=== PATIENT | female | born 1980 | race Caucasian/White ===

== ENCOUNTER 2020-03-09 14:25 | Outpatient (REF) | payer OTHER, SELFPAY ==
[2020-03-09 17:24] LABS: Syphilis Screen Nonreactive (Nonreactive)
[2020-03-10 03:12] LABS: CT PCR NOT DETECTED (Not Detect.); NG PCR NOT DETECTED (Not Detect.)
[2020-03-10 08:54] LABS: BV Int Neg Control Negative (Negative); BV Int Pos Control Positive (Positive)
[2020-03-14 04:29] LABS: HBsAGNum1 0.21 S/CO (0.00-0.99); HIV AB/AG Nonreactive (Nonreactive); HIV Num 1 0.21 S/CO (0.00-0.99); Hepatitis B Surface Antigen Negative (Negative); ~HepC Num1 0.14 S/CO (0.00-0.79); ~Hepatitis C Antibody Nonreactive (Nonreactive)
[2020-03-16 22:18] LABS: HPV mRNA E6/E7 rflx Not Detected (Not Detected)
== END 2020-03-09 14:26 | disposition home or self-care (01) ==
LOC: HO.LAB 14:25
PROVIDERS: Visit Provider Advanced Practice Midwife
DX: Z01.419 Encounter for gynecological examination (general) (routine) without abnormal findings (principal); Z11.51 Encounter for screening for human papillomavirus (HPV); Z11.3 Encounter for screening for infections with a predominantly sexual mode of transmission; Z11.4 Encounter for screening for human immunodeficiency virus [HIV]; Z01.84 Encounter for antibody response examination; Z20.2 Contact with and (suspected) exposure to infections with a predominantly sexual mode of transmission
CPT/HCPCS: 86780; 86803; 87340; 87389; 87480; 87491; 87510; 87591; 87624; 87625; 87660; 88142

== ENCOUNTER 2021-08-01 14:21 | Outpatient (REF) | payer OTHER, SELFPAY ==
[2021-08-02 12:10] LABS: BV Int Neg Control Negative (Negative); BV Int Pos Control Positive (Positive)
[2021-08-02 12:40] LABS: CT PCR NOT DETECTED (Not Detect.); NG PCR NOT DETECTED (Not Detect.)
== END 2021-08-01 14:22 | disposition home or self-care (01) ==
LOC: HO.LAB 14:21
PROVIDERS: Visit Provider Advanced Practice Midwife
DX: Z01.419 Encounter for gynecological examination (general) (routine) without abnormal findings (principal); Z20.2 Contact with and (suspected) exposure to infections with a predominantly sexual mode of transmission; E66.3 Overweight
CPT/HCPCS: 87480; 87491; 87510; 87591; 87660

== ENCOUNTER 2021-08-15 14:33 | Outpatient (REF) | payer OTHER, SELFPAY ==
--- NOTE | ~2021-08-15 | MM_ITS ---
EXAMINATION: MM SCREENING DIGITAL BREAST TOMOSYNTHESIS, BILATERAL CLINICAL INFORMATION: Screening. Asymptomatic. Age 40. No prior breast imaging. No known family history breast cancer. The lifetime risk of breast cancer based on the Tyrer-Cuzick Model is 8%. COMPARISON: None (current study represents initial baseline exam). TECHNIQUE: Digital breast tomosynthesis is performed in both the craniocaudal and mediolateral oblique views along with computer-aided detection (CAD). Synthesized 2D images are generated from the tomosynthesis. FINDINGS: There are scattered areas of fibroglandular density (ACR BI-RADS breast composition Category b). There are no significant masses, abnormal calcifications, or other abnormalities. Breast tissue composition borders on heterogeneously dense. There is fine fibronodular parenchymal pattern. The axilla and skin contours are unremarkable. MM/MM tomosynthesis screening BI IMPRESSION: No mammographic evidence of malignancy. ASSESSMENT: BI-RADS 1: Negative RECOMMENDATION: Routine annual mammography screening. This patient's information was entered into a reminder system with a target due date for their next mammogram.
== END 2021-08-15 14:34 | disposition home or self-care (01) ==
LOC: HO.MAMMO 14:33
PROVIDERS: Visit Provider Advanced Practice Midwife
DX: Z12.31 Encounter for screening mammogram for malignant neoplasm of breast (principal)
CPT/HCPCS: 77063; 77067

== ENCOUNTER 2022-05-16 08:49 | Outpatient (REF) | payer OTHER, SELFPAY ==
--- NOTE | 2022-05-16 08:55 | EMG_ITS ---
Please see scanned EMG / Nerve Conduction Report. MTDD
== END 2022-05-16 08:50 | disposition home or self-care (01) ==
LOC: HO.NEURO 08:49
PROVIDERS: PCP Internal Medicine; Visit Provider Internal Medicine
DX: R20.2 Paresthesia of skin (principal); R20.0 Anesthesia of skin
CPT/HCPCS: 95885; 95913

== ENCOUNTER 2022-08-07 13:56 | Outpatient (REF) | payer OTHER, SELFPAY | END 2022-08-07 13:57 | disposition home or self-care (01) | LOC: HO.LNP 13:56 | PROVIDERS: PCP Internal Medicine; Visit Provider Advanced Practice Midwife | DX: Z13.89 Encounter for screening for other disorder (principal) ==

== ENCOUNTER 2022-08-07 14:53 | Outpatient (REF) | payer OTHER, SELFPAY ==
[2022-08-07 18:04] LABS: CT PCR NOT DETECTED (Not Detect.); NG PCR NOT DETECTED (Not Detect.)
[2022-08-08 03:44] LABS: Syphilis Screen Nonreactive (Nonreactive)
[2022-08-08 04:10] LABS: HBsAGNum1 0.37 S/CO (0.00-0.99); HIV AB/AG Nonreactive (Nonreactive); HIV Num 1 0.07 S/CO (0.00-0.99); Hepatitis B Surface Antigen Negative (Negative); ~HepC Num1 0.15 S/CO (0.00-0.79); ~Hepatitis C Antibody Nonreactive (Nonreactive)
[2022-08-08 10:19] LABS: BV Int Neg Control Negative (Negative); BV Int Pos Control Positive (Positive)
== END 2022-08-07 14:54 | disposition home or self-care (01) ==
LOC: HO.LAB 14:53
PROVIDERS: PCP Internal Medicine; Visit Provider Advanced Practice Midwife
DX: Z11.3 Encounter for screening for infections with a predominantly sexual mode of transmission (principal); Z11.4 Encounter for screening for human immunodeficiency virus [HIV]; Z20.2 Contact with and (suspected) exposure to infections with a predominantly sexual mode of transmission
CPT/HCPCS: 0353U; 86780; 86803; 87340; 87389; 87480; 87510; 87660

== ENCOUNTER 2022-08-10 05:57 | Outpatient (REF) | payer OTHER, SELFPAY ==
[2022-08-10 08:17] LABS: Alanine Aminotransferase 23 U/L (0-31); Alkaline Phosphatase 114 U/L (39-117); Anion Gap 8 (12-20); Aspartate Amino Transferase 20 U/L (5-31); Bilirubin Total 0.3 mg/dL (0.0-1.0); Blood Urea Nitrogen 8 mg/dL (9-16); Calcium 8.9 mg/dL (8.4-10.2); Carbon Dioxide 26 mmol/L (22-29); Chloride 107 mmol/L (96-108); Cholesterol 151 mg/dL; Estimated Glomerular Filt Rate > 60; Glucose Fasting 107 mg/dL (60-99); HDL Cholesterol 34 mg/dL; Potassium 4.3 mmol/L (3.3-5.1); Sodium 137 mmol/L (135-145); Total Protein 7.3 g/dL (6.5-8.0)
== END 2022-08-10 05:58 | disposition home or self-care (01) ==
LOC: HO.LAB 05:57
PROVIDERS: PCP Internal Medicine; Visit Provider Internal Medicine
DX: Z00.00 Encounter for general adult medical examination without abnormal findings (principal)
CPT/HCPCS: 36415; 80053; 80061

== ENCOUNTER 2023-03-19 10:45 | Outpatient (REF) | payer OTHER, SELFPAY ==
[2023-03-19 12:01] LABS: Influenza A PCR NEGATIVE (Negative); Influenza B PCR NEGATIVE (Negative); Resp Syncy Virus RNA Qual PCR NEGATIVE (Negative); SARS COV2 PCR INHOUSE POSITIVE (Negative)
== END 2023-03-19 10:46 | disposition home or self-care (01) ==
LOC: HO.LAB 10:45
PROVIDERS: PCP Internal Medicine; Visit Provider Internal Medicine
DX: R09.89 Other specified symptoms and signs involving the circulatory and respiratory systems (principal); Z11.52 Encounter for screening for COVID-19
CPT/HCPCS: 0241U

== ENCOUNTER 2023-05-06 15:47 | Outpatient (REF) | payer OTHER, SELFPAY ==
--- NOTE | ~2023-05-06 | MM_ITS ---
EXAMINATION: MM SCREENING DIGITAL BREAST TOMOSYNTHESIS, BILATERAL CLINICAL INFORMATION: Screening. Asymptomatic. COMPARISON: Mammography: This study is compared with the only prior mammogram from 2021. TECHNIQUE: Digital breast tomosynthesis is performed in both the craniocaudal and mediolateral oblique views along with computer-aided detection (CAD). Synthesized 2D images are generated from the tomosynthesis. FINDINGS: There are scattered areas of fibroglandular density (ACR BI-RADS breast composition Category b). There are no significant masses, abnormal calcifications, or other abnormalities. MM/MM tomosynthesis screening BI IMPRESSION: No mammographic evidence of malignancy. ASSESSMENT: BI-RADS BI-RADS 1 - Negative RECOMMENDATION: Routine annual mammography screening. 1 year F/U This examination should not preclude the clinical evaluation of a suspicious palpable abnormality. This patient's information was entered into a reminder system with a target due date for their next mammogram.
== END 2023-05-06 15:48 | disposition home or self-care (01) ==
LOC: HO.MAMMO 15:47
PROVIDERS: PCP Internal Medicine; Visit Provider Internal Medicine
DX: Z12.31 Encounter for screening mammogram for malignant neoplasm of breast (principal)
CPT/HCPCS: 77063; 77067

== ENCOUNTER → 2023-05-06 16:15 | Outpatient (BNV) | payer OTHER, SELFPAY | PROVIDERS: PCP Internal Medicine; Visit Provider Radiology Diagnostic Radiology | DX: Z12.31 Encounter for screening mammogram for malignant neoplasm of breast (principal) | CPT/HCPCS: 77063; 77067 ==

== ENCOUNTER 2023-08-12 14:53 | Outpatient (REF) | payer OTHER, SELFPAY ==
[2023-08-13 13:36] LABS: BV Int Neg Control Negative (Negative); BV Int Pos Control Positive (Positive)
[2023-08-13 15:00] LABS: CT PCR NOT DETECTED (Not Detect.); NG PCR NOT DETECTED (Not Detect.)
== END 2023-08-12 14:54 | disposition home or self-care (01) ==
LOC: HO.LNP 14:53
PROVIDERS: PCP Internal Medicine; Visit Provider Advanced Practice Midwife
DX: H57.9 Unspecified disorder of eye and adnexa (principal); E66.3 Overweight; Z20.2 Contact with and (suspected) exposure to infections with a predominantly sexual mode of transmission; Z98.51 Tubal ligation status
CPT/HCPCS: 0353U; 87480; 87510; 87660; 99396

== ENCOUNTER 2023-08-12 14:53 | Outpatient (AMB) | payer OTHER, SELFPAY ==
--- NOTE | 2023-08-12 14:54 | MHC.OFFVIS ---
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 She says she has not been able to see her primary care provider in the last year. She did have an appointment but she was sick with COVID so she had to cancel that appointment and when he got rescheduled it was very far away she said she has not been able to see her to discuss the concerns about her heavy breasts which she would like surgery for and also for her I she has not had a referral to Ophthalmology she says and she says she is waiting to see her primary. She says she was told she is prediabetic she is trying to lose the weight in by eating small meals only 2 meals a day and she is avoiding soda and other sweet things. She was not worried about STIs but did accept testing during the neonatal critical care nurse exam she is due for Pap smear next year. She does not remember the exact day of herperiod But it was around the middle of the month. She had her tubes tied so she has not worried about control. she is sexually active with her . She said she had her mammogram about 4 or 5 months ago and it was fine. She said that the thing in her eye is affecting her vision in the left eye if she covers her good eye her vision is obscured [facility] Medical History (Updated 08/12/23 @ 15:53 by Ginette Schultz CNM) Overweight (BMI 25.0-29.9) Bilateral wrist pain Paresthesia of hand, bilateral Pinguecula of left eye Low back pain Left lumbar radiculopathy Surgical History (Updated 08/12/23 @ 15:48 by Ginette Schultz CNM) History of tubal ligation Family History Mother Pneumonia Chronic liver failure Father Colon cancer Sister Lupus Social History Housing: House Alcohol intake: never Patient Tobacco Use Status: Never used Tobacco e-Cigarette/Vaping Use: Never Used service: No Current occupational status: employed Current occupational exposures/hazards: No Gender identity: Female Cognitive needs: No Hearing needs: No Vision needs: No Female Reproductive History Menstrual Age of Menarche: 15 Duration of menses: 3-5 days control method: other (tubal ligation) Total pregnancies: 2 Full term: 2 Number of Living Children: 2 Date of last pap smear: 03/15/20 (negative) History of abnormal pap smear: No Date of Mammogram: 05/06/23 Physical Exam Vital Signs: Last Vital Signs BP 114/68 08/12/23 14:55 BMI result Body Mass Index 28.3 Const General: healthy appearing, comfortable, no acute distress, well developed and alert Nutritional Appearance: average body habitus Orientation/consciousness: patient oriented x3 Limitations: no limitations HEENT Head: Yes normocephalic Eyes Other: Patient has pinkish gel like thickening of the sclera on left eye that is over growing the left Iris. Neck Neck: Yes normal visual inspection Chest Chest palpation & inspection: normal inspection of the chest Breast/axilla inspection: normal inspection of the breasts and normal inspection of the axillae Breast/axilla palpation: normal palpation of the breasts and normal palpation of the axillae Resp Effort & Inspection: normal respiratory effort GI Inspection: Yes normal to inspection, No Abdominal wall edema and No distended Palpation (GI): Soft to palpation and nontender General: Yes bladder normal to palpation External Female Exam: normal external appearance and normal appearance of the urethra Speculum Exam - Vagina: normal appearance of the vagina, normal palpation and normal vaginal discharge Speculum Exam - Cervix: normal appearance of the cervix, normal palpation and nontender Bimanual exam- vagina & uterus: normal bimanual exam, normal palpation, uterine size normal, bladder normal to palpation, consistency normal, normal palpation, uterine mobility normal, uterine shape normal, No Cervical tenderness present, non-tender and no cervical motion tenderness Bimanual Exam- Adnexa, other: normal adnexae, no masses, normal and No adnexal tenderness Neuro General: patient oriented x3 Results Reviewed Results Reviewed: Name: Maryam Huston Specimen #: [id number] Age/Sex: 39/F Attending: Ginette Schultz CNM : 1980 Submitted by: Ginette Schultz CNM Collected: 03/09/20 MR #: [id number] Received: 03/15/20 Status: DEP REF Location: .LAB Interpretation Satisfactory for evaluation. Negative for intraepithelial lesion or malignancy. HPV mRNA E6/E7: NOT DETECTED This assay detects E6/E7 viral messenger RNA (mRNA) from 14 high-risk HPV types (16, 18, 31, 33, 35, 39, 45, 51, 52, 56, 58, 59, 66, 68) HPV testing performed by [facility], [place], [place]. See reference laboratory portion of the EMR for entire report. Clinical Information LMP: 02/29/20 Previous PAP test: Unknown date/findings Material Received ThinPrep cervical Electronically Signed By: ROSSY Hendricks (ASCP) 04/06/20 0923 The Pap Test is a screening procedure with the inherent possibility of both false negative and false positive results. Results should be interpreted in the context of historic and current clinical findings. Reliability of the Pap Test is enhanced by performing the test on a regular repetitive basis. Patient: Lemuel Page 1 of 1 Assessment & Plan Assessment & Plan (1) Eye lesion: Code(s): H57.9 - Unspecified disorder of eye and adnexa Category: Medical (2) Overweight (BMI 25.0-29.9): Code(s): E66.3 - Overweight Category: Medical (3) Potential exposure to STD: Comment: Patient is not concerned at all she accepted cultures during the visit Code(s): Z20.2 - Contact with and (suspected) exposure to infections with a predominantly sexual mode of transmission Category: Medical (4) History of tubal ligation: Code(s): Z98.51 - Tubal ligation status Category: Surgical Plan -----Discussed in this visit the following: healthy balanced diet, regular and consistent exercise, getting recommended health screens, doing the best she can for her particular health concerns, kegel exercises, pap smear screening and followup recommendations, mammography screening and SBE, normal changes in cycles in her life stage--- . Discussed that she will be due for her Pap smear next year in 2024. I offered testing for STIs but the only thing she accepted were the checks for gonorrhea chlamydia trichomoniasis Gardnerella and Gretta that were done with the pelvic exam. Her discharge appeared clear and healthy and normal her cervix appeared pink and healthy and normal. Her breasts are pendulous but no masses palpable. I urged her to follow-up on her I and re request referral to Ophthalmology from her primary care provider I did question does she need to wait for her provider to send her a referral but she said she was told that she needed a referral from her. She has doing a good job trying to eat healthy take care of her pre diabetes and overall health RTC 1 year. with Pap I was not able to describe to her during the exam how to do a Kegel and instead she was bearing down so I gave her written handout on Kegel exercises in [place]i. Orders: Orders CT NG by PCR Today Z20.2 - Contact with and (suspected) exposure to infections with a predominantly sexual mode of transmission Bacterial Vaginosis Panel Today Z20.2 - Contact with and (suspected) exposure to infections with a predominantly sexual mode of transmission Coding Level of Care Code Est Pt Prev Care 40-64y(52887) Diagnoses Eye lesion H57.9 Overweight (BMI 25.0-29.9) E66.3 Potential exposure to STD Z20.2 History of tubal ligation Z98.51
[2023-08-12 14:55] VITALS: BP 114/68; BMI 28.3
== END 2023-08-12 15:47 | disposition home or self-care (01) ==
LOC: HO.HWSM 14:53
PROVIDERS: PCP Internal Medicine; Visit Provider Advanced Practice Midwife
DX: Z01.419 Encounter for gynecological examination (general) (routine) without abnormal findings (principal); H57.9 Unspecified disorder of eye and adnexa; E66.3 Overweight; Z20.2 Contact with and (suspected) exposure to infections with a predominantly sexual mode of transmission; Z98.51 Tubal ligation status
CPT/HCPCS: 99396

== ENCOUNTER 2023-12-05 13:55 | Outpatient (AMB) | payer OTHER, SELFPAY ==
[2023-12-05 13:59] VITALS: BP 120/72; BMI 28.5
--- NOTE | 2023-12-05 13:59 | MHC.PC.OV ---
Vital Signs 12/05/23 13:59 Height 4 ft 11 in Weight 141 lb BMI 28.5 BP 120/72 Blood Pressure Location Lt brachial Position Sitting Intake Visit Reasons: follow up Intake Note: Patient here for vision problems Bindery Supervisor Required: No Accompanied by: Self / Same As Patient Allergies No Known Allergies Allergy (Verified 12/05/23 14:09) Medication List - Last Reconciled 12/05/23 by Georgiana Sena MD No Known Home Meds Tobacco use date assessed: 12/05/23 Dental Screening Dental Screen Date: 12/05/23 Did you have a dental visit in the last 12 months?: Yes Did you have a dental problem in the last 6 months where you did not have access to dental care?: No Was dental information given to patient?: Patient has dentist HPI HPI Comments History of Present Illness Details This is a 43-year-old female that complains of having decrease in vision in the left eye due to pterygium that bothers her. Will be referred to Ophthalmology. Also has thoracic spine pain secondary to macromastia. Her Bra gets indented in the shoulder due to macromastia. Will be referred to Plastic surgery for evaluation and management of macromastia. She has also try [id number] pain medications and to lose some weight but has not improved the pain. [facility] Medical History (Updated 12/05/23 @ 14:22 by Georgiana Sena MD) Overweight (BMI 25.0-29.9) Bilateral wrist pain Paresthesia of hand, bilateral Pinguecula of left eye Low back pain Left lumbar radiculopathy Surgical History History of tubal ligation Family History Mother Pneumonia Chronic liver failure Father Colon cancer Sister Lupus Social History Housing: House Alcohol intake: never Patient Tobacco Use Status: Never used Tobacco e-Cigarette/Vaping Use: Never Used service: No Current occupational status: employed Current occupational exposures/hazards: No Gender identity: Female Cognitive needs: No Hearing needs: No Vision needs: No Female Reproductive History Menstrual Age of Menarche: 15 Questionnaire PHQ-9 Over the last 2 weeks, how often have you been bothered by any of the following problems? 1. Little interest or pleasure in doing things: not at all 2. Feeling down, depressed, or hopeless: not at all 3. Trouble falling or staying asleep, or sleeping too much: not at all 4. Feeling tired or having little energy: not at all 5. Poor appetite or overeating: not at all 6. Feeling bad about yourself - or that you are a failure or have let yourself or your family down: not at all 7. Trouble concentrating on things, such as reading the newspaper or watching television: not at all 8. Moving or speaking so slowly that other people could have noticed. Or the opposite - being so fidgety or restless that you have been moving around a lot more than usual: not at all 9. Thoughts that you would be better off or of hurting yourself in some way: not at all Total score: 0 Depression Screening Interpretation: Negative Depression Screening Done: Yes 12355 - PHQ-9 Billing: Yes Source: Developed by Drs. Vidal Morales, Lila Khanna, Huey Oliveira and colleagues, with an educational vic from [employer]. Thrive Questionnaire Date Thrive assessed: 12/05/23 I am a: Patient What is your living situation today?: I have a steady place to live Within the past 12 months, did the food you bought not last and you didn't have the money to get more?: Never true Within the past 12 months, did you worry whether your food would run out before you got money to buy more?: Never true Do you have trouble paying for medicines?: No Do you have trouble getting transportation to medical appointments?: No Do you have trouble paying your heating and electricity bill?: No Do you have trouble taking care of your child, family member or friend?: No Do you have trouble with day-to-day activities such as bathing, preparing meals, shopping, managing finances, etc.?: No Are you currently unemployed and looking for a job?: No Are you interested in more education?: No Please select the resources that you would like help with: None Currently or been in a relationship where the following occur: No concerns reported THRIVE Score: 0 AUDIT C Alcohol Use Questionnaire (AUDIT-C) 1. How often do you have a drink containing alcohol?: Never Total Score: 0 Score Reviewed/Action Taken: No ZURDO-7 AMB Questionnaire ZURDO-7 Date ZURDO - 7 assessed: 12/05/23 Feeling nervous, anxious, or on edge: 0 = Not at all Not being able to stop or control worryin = Not at all Worrying too much about different things: 0 = Not at all Trouble relaxin = Not at all Being so restless that it is hard to sit still: 0 = Not at all Becoming easily annoyed or irritable: 0 = Not at all Feeling afraid as if something awful might happen: 0 = Not at all Total ZURDO-7 score (0-4 normal; 5-9 mild; 10-14 moderate; 15-21 severe): 0 Source: Developed by Drs. Vidal Morales, Lila Khanna, Huey Oliveira and colleagues, with an educational vic from [employer]. ZURDO-7 Assessment Billing ZURDO-7 Assessment Tool: ZURDO-7 Assessment 50167 Review of Systems Const All systems reviewed & are unremarkable except as noted in HPI and below Eyes Reports other visual disturbances Card Denies chest pain at rest, Denies chest pain with activity, Denies edema, Denies irregular heart rhythm, Denies claudication, Denies dyspnea, Denies dyspnea on exertion, Denies orthopnea, Denies paroxysmal nocturnal dyspnea and Denies slow heart rate Resp Denies cough, Denies dyspnea and Denies dyspnea on exertion Musc Reports back pain Physical exam (Primary Care) Vital Signs: Last Vital Signs BP 120/72 12/05/23 13:59 BMI result Body Mass Index 28.5 Tobacco/Smoking Status: Tobacco use Status Tobacco use date assessed 12/05/23 12/05/23 14:06 Patient Tobacco Use Status Never used Tobacco 12/05/23 14:03 Tobacco use type 05/02/22 17:13 e-Cigarette/Vaping Use Never Used 12/05/23 14:03 PHQ-9: PHQ-9 Score PHQ-9: Total score 0 12/05/23 14:03 Depression Screening Interpretation: Negative Thrive Assessment: Date of Thrive Assessment Date Thrive assessed 12/05/23 12/05/23 14:03 Currently or been in a relationship where the following occur: No concerns reported Eyes Conjunctivae: conjunctival abnormal left pterygium Resp Effort & Inspection: normal respiratory effort Auscultation: clear to auscultation bilaterally Cardio Jugular venous distension: no JVD Rate: regular rate Rhythm: regular rhythm Heart sounds: S1 normal heart sound present and S2 normal heart sound present Extrem General: Yes full ROM Assessment and Plan Assessment & Plan (1) Pterygium: Code(s): H11.009 - Unspecified pterygium of unspecified eye Qualifiers: Laterality: left Qualified Code(s): H11.002 - Unspecified pterygium of left eye Plan: Referred to Ophthalmology. (2) Macromastia: Code(s): N62 - Hypertrophy of breast Plan: Referred to Plastic surgery. Orders: Referrals Ophthalmology Referral H11.009 - Unspecified pterygium of unspecified eye Plastic Surgery Referral N62 - Hypertrophy of breast Coding Level of Care Code Est Pt Level 3 (19789) Complex EM visit Add On G2211 Diagnoses Pterygium of left eye H11.002 Laterality: left Macromastia N62 Additional Codes ZURDO-7 Assessment Billing - ZURDO-7 Assessment Tool: ZURDO-7 Assessment 85197 ([id number]) Time Spent (min) 19
== END 2023-12-05 14:22 | disposition home or self-care (01) ==
PROVIDERS: PCP Internal Medicine; Visit Provider Internal Medicine
DX: H11.002 Unspecified pterygium of left eye (principal); N62 Hypertrophy of breast
CPT/HCPCS: 99213; G2211

== ENCOUNTER 2024-05-12 15:36 | Outpatient (REF) | payer OTHER, SELFPAY ==
--- OUTSIDE RECORDS SUMMARY | 2024-05-12 16:28 | XMS_ITS | Encounter Summary ---
Author Organization [employer] Address [address] [place] [address] Care Team Providers Care Price Analyst Name Role Phone Unavailable Primary Care Provider Unavailabl e Encounter Details Date Type Department Care Team (Late st Contact Info) Description 04/23/2024 Telephone [facility] ADULT DENTAL [address] [place] [address] Apurva Murray Social History Tobacco Use Types Packs/Day Years Used Date Smoking Tobacco: Never Smokeless Tobacco: Never Comments Unknown Sex and Gender Information Value Date Recorded Sex Assigned at Female 11/08/2022 1:16 PM EDT Legal Sex Female 2:12 PM EDT Gender Identity Female 11/08/2022 1:16 PM EDT Sexual Orientation Straight 11/08/2022 1: 16 PM EDT documented as of this encounter Miscellaneous Notes * Telephone Encounter - Erica Soto - 04/23/2024 7:59 AM EST LVM, informing pt her appointment was cancel provider out of the office today. to reach us back to reschedule, documented in this encounter Plan of Treatment Not on file documented as of this encounter Visit Diagnoses Not on filedocumented in this encounter
--- OUTSIDE RECORDS SUMMARY | 2024-05-12 16:28 | XMS_ITS | Clinical Summary ---
Author Organization [employer] [facility] Address [address] [place] [address] Care Team Providers Care Tack Maker Name Role Phone Unavailable Primary Care Provider Unavailabl e Allergies No known active allergies Medications No known medications Encounters Date Type Department Care Team Description 04/23/2024 Telephone [facility] ADULT DENTAL [address] [place] [address] Apurva Murray from Last 3 Months Social History Tobacco Use Types Packs/Day Years Used Date Smoking Tobacco: Never Smokeless Tobacco: Never Tobacco Cessation:Counseling Given: Not Answered Comments Unknown Sex and Gender Information Value Date Recorded Sex Assigned at Female 11/08/2022 1:16 PM EDT Legal Sex Female 2:12 PM EDT Gender Identity Female 11/08/2022 1:16 PM EDT Sexual Orientation Straight 11/08/2022 1: 16 PM EDT Last Filed Vital Signs Vital Sign Reading Time Taken Comments Blood Pressure 114/68 05/09/2023 2:04 PM EST Pulse 64 05/09/2023 2:04 PM EST Temperature - - Respiratory Rate - - Oxygen Saturation - - Inhaled Oxygen Concentration - - Weight - - Height - - Body Mass Index - - Plan of Treatment Health Maintenance Due Date Last Done Comments Depression Screening 1980 HIV Screening 1980 SDOH Screening 1980 Alcohol/Substance Use Screening 1992 Family Planning (PISQ) 12/02/1995 Hepatitis C Screening 1998 DTaP/Tdap/Td Vaccines (1 - Tdap) 12/02/1999 Hepatitis B Vaccines (1 of 3 - + 3-dose series) 12/02/1999 Pap Smear 2001 Cervical Cancer Screening 2010 HPV/Cotest 2010 Mammogram 2020 Dental Oral Exam 06/02/2023 11/29/2022 Dental Prophylaxis 11/08/2023 05/09/2023 Dental X-Ray: Bitewings 2023 11/29/2022 COVID-19 Vaccine (3 - 2023-2 5 season) 2023 08/30/2020, 08/03/2020 Influenza Vaccine (#1) 2023 01/22/2020 Tobacco Screening 05/09/2024 05/09/2023 Dental X-Ray: Full Mouth 11/30/2025 11/29/2022 Zoster Vaccines (1 of 2) 2030 RSV Patients and Patients Aged 60 years or older (1 - 1-dose 75+ series) 12/02/2055 HIB Vaccines Aged Out No longer eligi ble based on patient's age to complete this topic HPV Vaccines Aged Out No longer eligi ble based on patient's age to complete this topic Hepatitis A Vaccines Aged Out No long er eligible based on patient's age to complete this topic IPV Vaccines Aged Out No longer eligi ble based on patient's age to complete this topic Meningococcal Vaccine Aged Out No akua nataly eligible based on patient's age to complete this topic Pneumococcal Vaccine: Pediatrics (0 to 5 Years) and At-Risk Patients (6 to 64 Years) Aged Out No longer eligible b ased on patient's age to complete this topic RSV under 20 months Aged Out No longe r eligible based on patient's age to complete this topic Rotavirus Vaccines Aged Out No longer eligible based on patient's age to complete this topic Procedures Procedure Name Priority Date/Time Associated Diagnosis Comments PROPHYLAXIS - ADULT Routine 05/09/2023 2 :00 PM EST Dental calculus DIAGNOSTIC - DIAGNOSTIC IMAGING - INTRAORAL - COMPREHENSIVE SERIES OF RADIOGRAPHIC IMAGES Routine 11/29/2022 3:00 PM EDT COMPREHENSIVE ORAL EVALUATION - NEW OR ESTABLISHED PATIENT Routine 11/29/2022 3:00 PM EDT from Last 3 Months or Most Recently Relevant to Health Maintenance Insurance [facility] MEDICAID STAND ADULT
== END 2024-05-12 15:37 | disposition home or self-care (01) ==
LOC: HO.MAMMO 15:36
PROVIDERS: PCP Internal Medicine; Visit Provider Internal Medicine
DX: Z12.31 Encounter for screening mammogram for malignant neoplasm of breast (principal)
CPT/HCPCS: 77063; 77067

== ENCOUNTER → 2024-05-12 15:45 | Outpatient (BNV) | payer OTHER, SELFPAY | PROVIDERS: PCP Internal Medicine; Visit Provider Internal Medicine | DX: Z12.31 Encounter for screening mammogram for malignant neoplasm of breast (principal) | CPT/HCPCS: 77063; 77067 ==

== ENCOUNTER 2024-05-20 14:22 | Outpatient (REF) | payer OTHER, SELFPAY ==
--- OUTSIDE RECORDS SUMMARY | 2024-05-20 16:13 | XMS_ITS | Clinical Summary ---
Author Organization [employer] [facility] Address [address] [place] [address] Care Team Providers Care Banjo Repairer Name Role Phone Unavailable Primary Care Provider Unavailabl e Allergies No known active allergies Medications No known medications Encounters Date Type Department Care Team Description 04/23/2024 Telephone [facility] ADULT DENTAL [address] [place] [address] Apurva Murray from Last 3 Months Social [...] 5 Years) and At-Risk Patients (6 to 49) Years) Aged Out No longer eligible b [...] Most Recently Relevant to Health Maintenance Insurance [facility] MEDICAID STAND ADULT
--- OUTSIDE RECORDS SUMMARY | 2024-05-20 16:13 | XMS_ITS | Encounter Summary ---
Author Organization [employer] Address [address] [place] [address] Care Team Providers Care Solar Photovoltaic Designer Name Role Phone Unavailable Primary Care Provider Unavailabl e Encounter Details Date Type Department Care Team (Late st Contact Info) Description 04/23/2024 Telephone [facility] CHC ADULT DENTAL [address] [place] [address] Apurva Murray Social History Tobacco Use Types [...]
[2024-05-21 12:35] LABS: Bacterial Vaginosis PCR NEGATIVE (Negative); Candida Group PCR DETECTED (Not Detect); Candida glab krusei PCR NOT DETECTED (Not Detect); Trichomonas vaginalis PCR NOT DETECTED (Not Detect)
== END 2024-05-20 14:23 | disposition home or self-care (01) ==
LOC: HO.LNP 14:22
PROVIDERS: PCP Internal Medicine; Visit Provider Advanced Practice Midwife
DX: Z01.419 Encounter for gynecological examination (general) (routine) without abnormal findings (principal); B37.31 Acute candidiasis of vulva and vagina
CPT/HCPCS: 81515; 99212

== ENCOUNTER 2024-06-08 14:45 | Outpatient (AMB) | payer OTHER, SELFPAY ==
--- NOTE | 2024-06-08 14:48 | MHC.PC.OV ---
Vital Signs 06/08/24 14:50 Height 4 ft 11 in Weight 143 lb BMI 28.9 BP 120/80 Blood Pressure Location Lt brachial Position Sitting Intake Visit Reasons: 6 month follow up Intake Note: Patient here for a 6 month follow up Material Attendant Required: No Accompanied by: Self / Same As Patient Allergies No Known Allergies Allergy (Verified 06/08/24 15:10) Medication List - Last Reconciled 06/08/24 by Georgiana Sena MD No Known Home Meds Tobacco use date assessed: 06/08/24 Dental Screening Dental Screen Date: 06/08/24 Did you have a dental visit in the last 12 months?: Yes Did you have a dental problem in the last 6 months where you did not have access to dental care?: No Was dental information given to patient?: Patient has dentist HPI HPI Comments History of Present Illness Details This is a 43-year-old female with prediabetes and hypertriglyceridemia that comes today for follow-up on her conditions. She does have polyuria and polydipsia but no weight loss. Labs will be order to check blood glucose and triglycerides. Denies any chest pain or shortness on breath. [facility]LY [facility] Medical History (Updated 06/08/24 @ 19:44 by Georgiana Sena MD) Overweight (BMI 25.0-29.9) Bilateral wrist pain Paresthesia of hand, bilateral Pinguecula of left eye Low back pain Left lumbar radiculopathy Surgical History History of tubal ligation Family History Mother Pneumonia Chronic liver failure Father Colon cancer Sister Lupus Social History Housing: House Alcohol intake: never Patient Tobacco Use Status: Never used Tobacco e-Cigarette/Vaping Use: Never Used Second Hand Smoke Exposure: No service: No Current occupational status: employed Current occupational exposures/hazards: No Gender identity: Female Cognitive needs: No Hearing needs: No Vision needs: No Female Reproductive History Menstrual Age of Menarche: 15 Questionnaire PHQ-9 Over the last 2 weeks, how often have you been bothered by any of the following problems? 1. Little interest or pleasure in doing things: not at all 2. Feeling down, depressed, or hopeless: not at all 3. Trouble falling or staying asleep, or sleeping too much: not at all 4. Feeling tired or having little energy: not at all 5. Poor appetite or overeating: not at all 6. Feeling bad about yourself - or that you are a failure or have let yourself or your family down: not at all 7. Trouble concentrating on things, such as reading the newspaper or watching television: not at all 8. Moving or speaking so slowly that other people could have noticed. Or the opposite - being so fidgety or restless that you have been moving around a lot more than usual: not at all 9. Thoughts that you would be better off or of hurting yourself in some way: not at all Total score: 0 Depression Screening Interpretation: Negative Depression Screening Done: Yes 18856 - PHQ-9 Billing: Yes Source: Developed by Drs. Vidal Morales, Lila Khanna, Huey Oliveira and colleagues, with an educational vic from [employer]. Thrive Questionnaire Date Thrive assessed: 06/08/24 I am a: Patient What is your living situation today?: I have a steady place to live Within the past 12 months, did the food you bought not last and you didn't have the money to get more?: Never true Within the past 12 months, did you worry whether your food would run out before you got money to buy more?: Never true Do you have trouble paying for medicines?: No Do you have trouble getting transportation to medical appointments?: No Do you have trouble paying your heating and electricity bill?: No Do you have trouble taking care of your child, family member or friend?: No Do you have trouble with day-to-day activities such as bathing, preparing meals, shopping, managing finances, etc.?: No Are you currently unemployed and looking for a job?: No Are you interested in more education?: No Please select the resources that you would like help with: None Currently or been in a relationship where the following occur: No concerns reported THRIVE Score: 0 AUDIT C Alcohol Use Questionnaire (AUDIT-C) 1. How often do you have a drink containing alcohol?: Never Total Score: 0 Score Reviewed/Action Taken: No ZURDO-7 AMB Questionnaire ZURDO-7 Date ZURDO - 7 assessed: 06/08/24 Feeling nervous, anxious, or on edge: 0 = Not at all Not being able to stop or control worryin = Not at all Worrying too much about different things: 0 = Not at all Trouble relaxin = Not at all Being so restless that it is hard to sit still: 0 = Not at all Becoming easily annoyed or irritable: 0 = Not at all Feeling afraid as if something awful might happen: 0 = Not at all Total ZURDO-7 score (0-4 normal; 5-9 mild; 10-14 moderate; 15-21 severe): 0 Source: Developed by Drs. Vidal Morales, Lila Khanna, Huey Oliveira and colleagues, with an educational vic from [employer]. ZURDO-7 Assessment Billing ZURDO-7 Assessment Tool: ZURDO-7 Assessment 16745 Review of Systems Const All systems reviewed & are unremarkable except as noted in HPI and below Card Denies chest pain at rest, Denies chest pain with activity, Denies edema, Denies irregular heart rhythm, Denies claudication, Denies dyspnea, Denies dyspnea on exertion, Denies orthopnea, Denies paroxysmal nocturnal dyspnea and Denies slow heart rate Resp Denies cough, Denies dyspnea and Denies dyspnea on exertion GI Denies abdominal pain, Denies change in bowel habits, Denies excessive flatus, Denies nausea and Denies vomiting Denies urinary incontinence, Denies urinary hesitancy and Denies urinary urgency Physical exam (Primary Care) Vital Signs: Last Vital Signs BP 120/80 06/08/24 14:50 BMI result Body Mass Index 28.9 Tobacco/Smoking Status: Tobacco use Status Tobacco use date assessed 06/08/24 06/08/24 14:53 Patient Tobacco Use Status Never used Tobacco 06/08/24 14:53 Tobacco use type 05/02/22 17:13 e-Cigarette/Vaping Use Never Used 06/08/24 14:53 PHQ-9: PHQ-9 Score PHQ-9: Total score 0 06/08/24 16:05 Depression Screening Interpretation: Negative Thrive Assessment: Date of Thrive Assessment Date Thrive assessed 06/08/24 06/08/24 14:53 Currently or been in a relationship where the following occur: No concerns reported Resp Effort & Inspection: normal respiratory effort Auscultation: clear to auscultation bilaterally Cardio Jugular venous distension: no JVD Rate: regular rate Rhythm: regular rhythm Heart sounds: S1 normal heart sound present and S2 normal heart sound present Extrem General: Yes full ROM Office Procedures Flu Questionnaire Does the patient have a severe egg allergy?: No Immunizations Fluarix Triv [id number] (PF) 45 mcg (15 mcg x 3)/0.5 mL IM syringe Performing Provider: Georgiana Sena MD [facility] Documented (not given) by: TANNER Ayoub on 06/08/24 16:05 Reason Not Given: Patient Refused Coding Level of Care Code Est Pt Level 3 (49955) Complex EM visit Add On G2211 Diagnoses Prediabetes R73.03 Hypertriglyceridemia E78.1 Additional Codes ZURDO-7 Assessment Billing - ZURDO-7 Assessment Tool: ZURDO-7 Assessment 56402 ([id number]) PHQ-9 - 92308 - PHQ-9 Billing: Yes ([id number]) Time Spent (min) 19 Assessment & Plan Assessment & Plan (1) Prediabetes: Code(s): R73.03 - Prediabetes Category: Medical (2) Hypertriglyceridemia: Code(s): E78.1 - Pure hyperglyceridemia Category: Medical Plan Repeat fasting blood glucose and lipid panel. Follow a low-cholesterol and low-carbohydrate diet. Orders: Orders Comprehensive [place]. Panel Fast Today R73.03 - Prediabetes Lipid Panel Today E78.5 - Hyperlipidemia, unspecified ECG 12 lead EKG Today Z01.810 - Encounter for preprocedural cardiovascular examination Complete Blood Count Auto Diff Today Z01.810 - Encounter for preprocedural cardiovascular examination Influenza 7320-1105 Immunization Today Z23 - Encounter for immunization
[2024-06-08 14:50] VITALS: BP 120/80; BMI 28.9
== END 2024-06-08 15:22 | disposition home or self-care (01) ==
PROVIDERS: PCP Internal Medicine; Visit Provider Internal Medicine
DX: R73.03 Prediabetes (principal); E78.1 Pure hyperglyceridemia; Z23 Encounter for immunization

== ENCOUNTER → 2024-06-08 14:45 | Outpatient (BNVA) | payer OTHER, SELFPAY | PROVIDERS: PCP Internal Medicine; Visit Provider Internal Medicine | DX: R73.03 Prediabetes (principal); E78.1 Pure hyperglyceridemia | CPT/HCPCS: 90471; 96127; 99212 ==

== ENCOUNTER 2024-07-10 06:00 | Outpatient (REF) | payer OTHER, SELFPAY ==
[2024-07-10 06:13] LABS: MANUAL DIFF FLAG NO
[2024-07-10 07:22] LABS: Basophils Percent Auto 0.4 % (0-2); Eosinophils Absolute Auto 0.3 X10*3/uL (0.0-0.4); Hematocrit 30.4 % (37.0-47.0); Hemoglobin 9.2 g/dl (12.0-16.0); Imm Gran Abs Auto 0.03 X10*3/uL (0.00-0.03); Imm Gran Pct Auto 0.3 % (0.0-0.4); Lymphocytes Absolute Auto 1.7 X10*3/uL (1.2-4.9); Lymphocytes Percent Auto 18.3 % (20-40); Mean Corpuscular HGB Conc 30.3 g/dl (31.0-35.0); Mean Corpuscular Hemoglobin 21.5 pg (27.0-33.0); Mean Corpuscular Volume 71.2 fL (80.0-98.0); Monocytes Absolute Auto 0.5 X10*3/uL (0.1-1.2); Monocytes Percent Auto 5.1 % (2-11); Neutrophils Absolute Auto 6.6 x10*3/uL (2.0-8.3); Neutrophils Percent Auto 72.9 % (45-73); Platelet Count 383 X10*3/uL (160-400); Red Blood Count 4.27 X10*6/uL (4.20-5.50); Red Cell Distribution Width 15.8 % (11.0-16.0)
[2024-07-10 07:53] LABS: Alanine Aminotransferase 16 U/L (0-31); Alkaline Phosphatase 75 U/L (39-117); Anion Gap 10 (12-20); Aspartate Amino Transferase 22 U/L (5-31); Bilirubin Total 0.4 mg/dL (0.0-1.0); Blood Urea Nitrogen 9 mg/dL (9-16); Calcium 9.3 mg/dL (8.4-10.2); Carbon Dioxide 22 mmol/L (22-29); Chloride 110 mmol/L (96-108); Cholesterol 158 mg/dL (<200); Estimated Glomerular Filt Rate > 60; Glucose Fasting 113 mg/dL (60-99); HDL Cholesterol 40 mg/dL (>40); LDL Cholesterol Calculated 109 mg/dL (<100); Potassium 3.9 mmol/L (3.3-5.1); Sodium 138 mmol/L (135-145); Total Protein 7.6 g/dL (6.5-8.0); Triglycerides 49 mg/dL (<150)
--- NOTE | 2024-07-10 14:22 | ECG_ITS ---
Test Reason : PRE OP Blood Pressure : */* mmHG Vent. Rate : 72 BPM Atrial Rate : 72 BPM P-R Int : 154 ms QRS Dur : 80 ms QT Int : 348 ms P-R-T Axes : 55 33 6 degrees QTcB Int : 381 ms Normal sinus rhythm Normal ECG No previous ECGs available Referred By: Georgiana Sena Electronically Signed By: SVETA GHOSH MD
== END 2024-07-10 06:01 | disposition home or self-care (01) ==
LOC: HO.LAB 06:00
PROVIDERS: PCP Internal Medicine; Visit Provider Internal Medicine
DX: Z01.810 Encounter for preprocedural cardiovascular examination (principal); R73.03 Prediabetes; E78.5 Hyperlipidemia, unspecified
CPT/HCPCS: 36415; 80053; 80061; 85025; 93005

== ENCOUNTER → 2024-07-10 14:22 | Outpatient (BNV) | payer OTHER, SELFPAY | PROVIDERS: PCP Internal Medicine; Visit Provider Internal Medicine Cardiovascular Disease | DX: Z01.810 Encounter for preprocedural cardiovascular examination (principal) | CPT/HCPCS: 93010 ==

== ENCOUNTER 2024-08-06 10:47 | Outpatient (REF) | payer OTHER, SELFPAY ==
[2024-08-06 10:57] LABS: MANUAL DIFF FLAG NO
[2024-08-06 12:00] LABS: Basophils Percent Auto 0.5 % (0-2); Eosinophils Absolute Auto 0.3 X10*3/uL (0.0-0.4); Eosinophils Percent Auto 3.9 % (0-4); Hemoglobin 11.1 g/dl (12.0-16.0); Imm Gran Abs Auto 0.03 X10*3/uL (0.00-0.03); Imm Gran Pct Auto 0.4 % (0.0-0.4); Lymphocytes Absolute Auto 1.5 X10*3/uL (1.2-4.9); Lymphocytes Percent Auto 17.7 % (20-40); Mean Corpuscular HGB Conc 30.8 g/dl (31.0-35.0); Mean Corpuscular Hemoglobin 24.5 pg (27.0-33.0); Mean Corpuscular Volume 79.5 fL (80.0-98.0); Mean Platelet Volume 11.4 fL (9.4-12.3); Monocytes Absolute Auto 0.4 X10*3/uL (0.1-1.2); Monocytes Percent Auto 4.2 % (2-11); Neutrophils Absolute Auto 6.2 x10*3/uL (2.0-8.3); Neutrophils Percent Auto 73.3 % (45-73); Platelet Count 302 X10*3/uL (160-400); Red Blood Count 4.53 X10*6/uL (4.20-5.50); Red Cell Distribution Width 24.4 % (11.0-16.0); White Blood Count 8.4 X10*3/uL (4.8-10.8)
[2024-08-06 12:22] LABS: Iron 73 mcg/dL (30-160); Percent Iron Saturation 21 % (15-50); Total Iron Binding Capacity 352 mcg/dL (228-428); Unsaturated Iron Binding 279 ug/dL
--- OUTSIDE RECORDS SUMMARY | 2024-08-06 12:39 | XMS_ITS | Clinical Summary ---
Author Organization [employer] [facility] Address [address] [place] [address] [address] [place] [address] Care Team Providers Care Front Office Supervisor Name Role Phone Unavailable Primary Care Provider Unavailabl e Allergies No known active allergies Medications No known medications Social History Tobacco Use Types Packs/Day Years [...] Hepatitis B Vaccines (1 of 3 - 19+ 3-dose series) 12/02/1999 Pap Smear 2001 Cervical [...] 05/09/2023 2 :00 PM EST Dental calculus INTRAORAL - COMPLETE SERIES OF RADIOGRAPHIC IMAGES Routine 11/29/2022 3:00 PM EDT COMPREHENSIVE ORAL EVALUATION - NEW OR ESTABLISHED PATIENT Routine 11/29/2022 3:00 PM EDT from Last 3 Months or Most Recently Relevant to Health Maintenance Insurance [facility] STAND ADULT
== END 2024-08-06 10:48 | disposition home or self-care (01) ==
LOC: HO.LAB 10:47
PROVIDERS: PCP Internal Medicine; Visit Provider Internal Medicine
DX: D64.9 Anemia, unspecified (principal)
CPT/HCPCS: 36415; 83540; 85025

== ENCOUNTER 2024-08-25 14:02 | Outpatient (AMB) | payer OTHER, SELFPAY ==
--- NOTE | 2024-08-25 14:04 | MHC.OFFVIS ---
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 She is taking iron right now because it was noted during a preop assessment that she had a low hemoglobin and she has already brought it up from 9 something to 11 something. She is awaiting to surgeries the 1st surgery is going to be for her eye-it will be done at an outpatient eye center on [address] [facility]. Then on October 14 if she brings her hemoglobin up and her other labs are okay she will be having breast reduction surgery at [facility] she is looking forward to that as well because she has a size D and her breasts are causing her a lot of back pain. So she will need off for the summer from work but she will be recovering. 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 She is interested in getting full testing for STIs today including blood work she is due for her Pap smears well today. Her last blood work with her primary care provider showed a slightly increased fasting blood sugar over her previous she is currently working on her diet and has a treadmill at home that she uses. [facility] Medical History Overweight (BMI 25.0-29.9) Bilateral wrist pain Paresthesia of hand, bilateral Pinguecula of left eye Low back pain Left lumbar radiculopathy Surgical History History of tubal ligation Family History Mother Pneumonia Chronic liver failure Father Colon cancer Sister Lupus Social History Housing: House Alcohol intake: never Patient Tobacco Use Status: Never used Tobacco e-Cigarette/Vaping Use: Never Used Second Hand Smoke Exposure: No service: No Current occupational status: employed Current occupational exposures/hazards: No Gender identity: Female Cognitive needs: No Hearing needs: No Vision needs: No Female Reproductive History Menstrual Age of Menarche: 15 Duration of menses: 3-5 days Date of last menstrual period: 08/10/24 control method: permanent sterilization Total pregnancies: 2 Full term: 2 Date of last pap smear: 03/15/20 (negative pap smear, negative pap smear) History of abnormal pap smear: No Date of Mammogram: 05/12/24 (bi rad 1) Physical Exam Vital Signs: Last Vital Signs BP 102/66 08/25/24 14:09 BMI result Body Mass Index 28.9 Const General: healthy appearing, comfortable, no acute distress, well developed and alert Nutritional Appearance: average body habitus Orientation/consciousness: patient oriented x3 Limitations: no limitations HEENT Head: Yes normocephalic Eyes Other: Patient has an opaque structure her left eye spreading from sclera over riding the iris. Eyes/upper lids images: 1. Structure in eye Neck Neck: Yes normal visual inspection Chest Chest palpation & inspection: normal inspection of the chest Breast/axilla inspection: normal inspection of the breasts and normal inspection of the axillae Breast/axilla palpation: normal palpation of the breasts and normal palpation of the axillae Resp Effort & Inspection: normal respiratory effort GI Inspection: Yes normal to inspection, No Abdominal wall edema and No distended Palpation (GI): Soft to palpation and nontender Other: External exam within limits vagina is moist nulliparous appearing services discharge Pap smear and testing for STIs done cervix slightly friable Cytobrush. Cervix long close thick mobile nontender uterus midposition mobile nontender adnexa nontender good tone with Kegel. General: Yes bladder normal to palpation External Female Exam: normal external appearance and normal appearance of the urethra Speculum Exam - Vagina: normal appearance of the vagina, normal palpation and normal vaginal discharge Speculum Exam - Cervix: normal appearance of the cervix, normal palpation and nontender Bimanual exam- vagina & uterus: normal bimanual exam, normal palpation, uterine size normal, bladder normal to palpation, consistency normal, normal palpation, uterine mobility normal, uterine shape normal, No Cervical tenderness present, non-tender and no cervical motion tenderness Bimanual Exam- Adnexa, other: normal adnexae, no masses, normal and No adnexal tenderness Neuro General: patient oriented x3 Results Reviewed Results Reviewed: Name: Maryam Huston Specimen #: [id number] Age/Sex: 39/F Attending: Ginette Schultz CNM : 1980 Submitted by: Ginette Schultz CNM Collected: 03/09/20 MR #: [id number] Received: 03/15/20 Status: DEP REF Location: .LAB Interpretation Satisfactory for evaluation. Negative for intraepithelial lesion or malignancy. HPV mRNA E6/E7: NOT DETECTED This assay detects E6/E7 viral messenger RNA (mRNA) from 14 high-risk HPV types (16, 18, 31, 33, 35, 39, 45, 51, 52, 56, 58, 59, 66, 68) HPV testing performed by [employer] [facility], [place], [place]. See reference laboratory portion of the EMR for entire report. Clinical Information LMP: 02/29/20 Previous PAP test: Unknown date/findings Material Received ThinPrep cervical Electronically Signed By: ROSSY Hendricks (ASCP) 04/06/20 0923 The Pap Test is a screening procedure with the inherent possibility of both false negative and false positive results. Results should be interpreted in the context of historic and current clinical findings. Reliability of the Pap Test is enhanced by performing the test on a regular repetitive basis. Patient: Lemuel Page 1 of 1 Assessment & Plan Assessment & Plan (1) Well woman exam with routine gynecological exam: Code(s): Z01.419 - Encounter for gynecological examination (general) (routine) without abnormal findings Category: Medical (2) Potential exposure to STD: Comment: Patient is not concerned at all she accepted cultures during the visit Code(s): Z20.2 - Contact with and (suspected) exposure to infections with a predominantly sexual mode of transmission Category: Medical (3) History of tubal ligation: Code(s): Z98.51 - Tubal ligation status Category: Surgical (4) Overweight (BMI 25.0-29.9): Code(s): E66.3 - Overweight Category: Medical (5) Eye lesion: Code(s): H57.9 - Unspecified disorder of eye and adnexa Category: Medical (6) Macromastia: Code(s): N62 - Hypertrophy of breast Category: Medical (7) Prediabetes: Code(s): R73.03 - Prediabetes Category: Medical (8) Iron deficiency anemia: Code(s): D50.9 - Iron deficiency anemia, unspecified Category: Medical (9) Cervical cancer screening: Comment: Pap neg 2019, Pap done 08/25/2024, Code(s): Z12.4 - Encounter for screening for malignant neoplasm of cervix Category: Medical Plan -----Discussed in this visit the following: healthy balanced diet, regular and consistent exercise, getting recommended health screens, doing the best she can for her particular health concerns, kegel exercises, pap smear screening and followup recommendations, mammography screening and SBE, normal changes in cycles in her life stage--- . Discussed her efforts to lose weight and get healthier she is trying to eat better and she is working on the treadmill at home. 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 She has plans for follow-up with her primary care provider both about the blood sugar and about the anemia preoperatively in plans for her breast reduction surgery but she is looking forward to. She is also going to be having some sort of treatment to her I to remove the structure over growing the sclera into iris . She wanted full STI testing which I ordered and I also did her Pap smear she is going to go downstairs and get the labs today. I also discussed her menses with her she said they are little heavy the 1st few days but they are fine, she is not interested in any kind of hormonal manipulation of her menses to make them audit senior associate, I discussed this because of her anemia Orders: Orders Hepatitis B Surface Antigen Today D50.9 - Iron deficiency anemia, unspecified, E66.3 - Overweight, H57.9 - Unspecified disorder of eye and adnexa, N62 - Hypertrophy of breast, R73.03 - Prediabetes, Z01.419 - Encounter for gynecological examination (general) (routine) without abnormal findings, Z20.2 - Contact with and (suspected) exposure to infections with a predominantly sexual mode of transmission, Z98.51 - Tubal ligation status Hepatitis C Antibody Today D50.9 - Iron deficiency anemia, unspecified, E66.3 - Overweight, H57.9 - Unspecified disorder of eye and adnexa, N62 - Hypertrophy of breast, R73.03 - Prediabetes, Z01.419 - Encounter for gynecological examination (general) (routine) without abnormal findings, Z20.2 - Contact with and (suspected) exposure to infections with a predominantly sexual mode of transmission, Z98.51 - Tubal ligation status HIV Ab/Ag Today D50.9 - Iron deficiency anemia, unspecified, E66.3 - Overweight, H57.9 - Unspecified disorder of eye and adnexa, N62 - Hypertrophy of breast, R73.03 - Prediabetes, Z01.419 - Encounter for gynecological examination (general) (routine) without abnormal findings, Z20.2 - Contact with and (suspected) exposure to infections with a predominantly sexual mode of transmission, Z98.51 - Tubal ligation status Syphilis Screen Today D50.9 - Iron deficiency anemia, unspecified, E66.3 - Overweight, H57.9 - Unspecified disorder of eye and adnexa, N62 - Hypertrophy of breast, R73.03 - Prediabetes, Z01.419 - Encounter for gynecological examination (general) (routine) without abnormal findings, Z20.2 - Contact with and (suspected) exposure to infections with a predominantly sexual mode of transmission, Z98.51 - Tubal ligation status Coding Level of Care Code Est Pt Prev Care 40-64y(96546) Diagnoses Well woman exam with routine gynecological exam Z01.419 Potential exposure to STD Z20.2 History of tubal ligation Z98.51 Overweight (BMI 25.0-29.9) E66.3 Eye lesion H57.9 Macromastia N62 Prediabetes R73.03 Iron deficiency anemia D50.9 Cervical cancer screening Z12.4
[2024-08-25 14:09] VITALS: BP 102/66; BMI 28.9
--- OUTSIDE RECORDS SUMMARY | 2024-08-25 15:12 | XMS_ITS | Clinical Summary ---
Author Organization [employer] [facility] Address [address] [place] [address] Care Team Providers Care Negative Restorer Name Role Phone Unavailable Primary Care Provider [...] Most Recently Relevant to Health Maintenance Insurance [facility] MEDICAID STAND ADULT
== END 2024-08-25 16:10 | disposition home or self-care (01) ==
LOC: HO.HWSM 14:02
PROVIDERS: PCP Internal Medicine; Visit Provider Advanced Practice Midwife
DX: Z01.419 Encounter for gynecological examination (general) (routine) without abnormal findings (principal); Z20.2 Contact with and (suspected) exposure to infections with a predominantly sexual mode of transmission; Z98.51 Tubal ligation status; E66.3 Overweight; H57.9 Unspecified disorder of eye and adnexa; N62 Hypertrophy of breast; R73.03 Prediabetes; D50.9 Iron deficiency anemia, unspecified
CPT/HCPCS: 99396; 99459

== ENCOUNTER 2024-08-25 14:02 | Outpatient (REF) | payer OTHER, SELFPAY ==
[2024-08-28 15:21] LABS: HPV Genotype 16 Negative (Negative); HPV Genotype 18 Negative (Negative); HPV High Risk Negative (Negative)
== END 2024-08-25 14:03 | disposition home or self-care (01) ==
LOC: HO.LNP 14:02
PROVIDERS: PCP Internal Medicine; Visit Provider Advanced Practice Midwife
DX: Z01.419 Encounter for gynecological examination (general) (routine) without abnormal findings (principal); Z20.2 Contact with and (suspected) exposure to infections with a predominantly sexual mode of transmission; Z98.51 Tubal ligation status; E66.3 Overweight; H57.9 Unspecified disorder of eye and adnexa; N62 Hypertrophy of breast; R73.03 Prediabetes; D50.9 Iron deficiency anemia, unspecified
CPT/HCPCS: 36415; 81515; 86780; 86803; 87340; 87389; 87491; 87591; 87626; 88175; 99396; 99459

== ENCOUNTER 2024-08-25 14:45 | Outpatient (REF) | payer OTHER, SELFPAY ==
--- OUTSIDE RECORDS SUMMARY | 2024-08-25 15:51 | XMS_ITS | Clinical Summary ---
Author Organization [employer] [facility] Address [address] [place] [address] Care Team Providers Care Lead Systems Engineer Name Role Phone Unavailable Primary Care Provider [...] Most Recently Relevant to Health Maintenance Insurance [facility] MEDICAID STAND ADULT
[2024-08-26 08:34] LABS: Syphilis Screen Nonreactive (Nonreactive)
[2024-08-26 08:41] LABS: HBsAGNum1 0.38 S/CO (0.00-0.99); HIV AB/AG Nonreactive (Nonreactive); HIV Num 1 0.06 S/CO (0.00-0.99); Hepatitis B Surface Antigen Negative (Negative); ~HepC Num1 0.22 S/CO (0.00-0.79); ~Hepatitis C Antibody Nonreactive (Nonreactive)
[2024-08-26 13:36] LABS: Bacterial Vaginosis PCR NEGATIVE (Negative); Candida Group PCR NOT DETECTED (Not Detect); Candida glab krusei PCR NOT DETECTED (Not Detect); Trichomonas vaginalis PCR NOT DETECTED (Not Detect)
[2024-08-26 14:17] LABS: CT PCR NOT DETECTED (Not Detect.); NG PCR NOT DETECTED (Not Detect.)
== END 2024-08-25 14:46 | disposition home or self-care (01) ==
LOC: HO.HHCL 14:45
PROVIDERS: Visit Provider Advanced Practice Midwife
DX: Z12.4 Encounter for screening for malignant neoplasm of cervix (principal)
CPT/HCPCS: 36415; 81515; 86780; 86803; 87340; 87389; 87491; 87591

== ENCOUNTER 2024-09-10 14:24 | Outpatient (REF) | payer OTHER, SELFPAY ==
--- OUTSIDE RECORDS SUMMARY | 2024-09-10 14:31 | XMS_ITS | Clinical Summary ---
Author Organization [employer] [facility] Address [address] [place] [address] Care Team Providers Care Bevel Polisher Name Role Phone Unavailable Primary Care Provider [...] 1980 HIV Screening 1980 SDOH Screening 1980 Disability Screening 1980 Alcohol/Substance Use Screening 1992 Family [...] patient's age to complete this topic Meningococcal B Vaccine Aged Out No l onger eligible based on patient's age to complete [...] Most [id number] [facility] MEDICAID STAND ADULT
[2024-09-10 14:38] LABS: MANUAL DIFF FLAG NO
[2024-09-10 15:05] LABS: Basophils Percent Auto 0.4 % (0-2); Eosinophils Absolute Auto 0.5 X10*3/uL (0.0-0.4); Eosinophils Percent Auto 4.7 % (0-4); Hematocrit 36.3 % (37.0-47.0); Hemoglobin 11.9 g/dl (12.0-16.0); Imm Gran Abs Auto 0.04 X10*3/uL (0.00-0.03); Imm Gran Pct Auto 0.4 % (0.0-0.4); Lymphocytes Absolute Auto 2.4 X10*3/uL (1.2-4.9); Lymphocytes Percent Auto 24.7 % (20-40); Mean Corpuscular HGB Conc 32.8 g/dl (31.0-35.0); Mean Corpuscular Hemoglobin 27.4 pg (27.0-33.0); Mean Corpuscular Volume 83.6 fL (80.0-98.0); Mean Platelet Volume 10.5 fL (9.4-12.3); Monocytes Absolute Auto 0.5 X10*3/uL (0.1-1.2); Monocytes Percent Auto 5.1 % (2-11); Neutrophils Absolute Auto 6.4 x10*3/uL (2.0-8.3); Neutrophils Percent Auto 64.7 % (45-73); Platelet Count 303 X10*3/uL (160-400); Red Blood Count 4.34 X10*6/uL (4.20-5.50); Red Cell Distribution Width 19.8 % (11.0-16.0); White Blood Count 9.9 X10*3/uL (4.8-10.8)
[2024-09-10 15:25] LABS: Iron 57 mcg/dL (30-160); Percent Iron Saturation 18 % (15-50); Total Iron Binding Capacity 323 mcg/dL (228-428); Unsaturated Iron Binding 266 ug/dL
== END 2024-09-10 14:25 | disposition home or self-care (01) ==
LOC: HO.LAB 14:24
PROVIDERS: PCP Internal Medicine; Visit Provider Internal Medicine
DX: D64.9 Anemia, unspecified (principal)
CPT/HCPCS: 36415; 83540; 85025

== ENCOUNTER 2024-10-01 12:18 | Outpatient (AMB) | payer OTHER, SELFPAY ==
--- NOTE | 2024-10-01 12:33 | A.OFFPC_ITS ---
Vital Signs 10/01/24 12:34 Height 4 ft 11 in Weight 140 lb BMI 28.3 BP 130/80 Blood Pressure Location Lt brachial Position Sitting Intake Visit Reasons: Breast reduction 11/11 Dr. 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 Her hemoglobin level was noted to be 11.9 g/dL, and she is currently taking iron supplements daily as advised. She has been identified as prediabetic and is attempting to eat healthier to manage this condition. The patient has a history of tubal ligation with no reported complications from the procedure. Her family history includes colon cancer in her father, who is now healthy. She does not smoke or consume alcohol. The patient reports no chest pain or dyspnea and is able to climb stairs without difficulty, indicating a low-risk profile for the upcoming surgery. Surgery is medium risk. By RCRI she has 0.4% risk of cardiac complications during surgery. Patient is medically clear. EKG and labs shows no medical contraindications. Also mammogram done in April which was normal. [facility] Medical History Overweight (BMI 25.0-29.9) Bilateral wrist pain Paresthesia of hand, bilateral Pinguecula of left eye Low back pain Left lumbar radiculopathy Surgical History History of tubal ligation Family History Mother Pneumonia Chronic liver failure Father Colon cancer Sister Lupus Social History Housing: House Alcohol intake: never Patient Tobacco Use Status: Never used Tobacco e-Cigarette/Vaping Use: Never Used Second Hand Smoke Exposure: No service: No Current occupational status: employed Current occupational exposures/hazards: No Gender identity: Female Cognitive needs: No Hearing needs: No Vision needs: No Female Reproductive History Menstrual Age of Menarche: 15 Questionnaire Thrive Questionnaire Date Thrive assessed: 06/08/24 ZURDO-7 AMB Questionnaire ZURDO-7 Date ZURDO - 7 assessed: 06/08/24 Source: Developed by Drs. Vidal Morales, Lila Khanna, Huey Oliveira and colleagues, with an educational vic from [employer]. Review of Systems Const All systems reviewed & are unremarkable except as noted in HPI and below ENT Denies change in voice, Denies nasal discharge and Denies sinus pain Card Denies chest pain at rest, Denies chest pain with activity, Denies edema, Denies irregular heart rhythm, Denies claudication, Denies dyspnea, Denies dyspnea on exertion, Denies orthopnea, Denies paroxysmal nocturnal dyspnea and Denies slow heart rate Resp Denies cough, Denies dyspnea and Denies dyspnea on exertion GI Denies abdominal pain, Denies change in bowel habits, Denies excessive flatus, Denies nausea and Denies vomiting Denies urinary incontinence, Denies urinary hesitancy and Denies urinary urgency Musc Denies abnormal gait, Denies atrophy, Denies deformity and Denies limited range of motion Skin/Breast Denies bleeding lesions, Denies changing lesions and Denies rash Neuro Denies abnormal gait, Denies behavioral changes and Denies lack of coordination Psych Denies behavioral changes Physical exam (Primary Care) Vital Signs: Last Vital Signs BP 130/80 10/01/24 12:34 BMI result Body Mass Index 28.3 Tobacco/Smoking Status: Tobacco use Status Tobacco use date assessed 06/08/24 06/08/24 14:53 Patient Tobacco Use Status Never used Tobacco 06/08/24 14:53 Tobacco use type 05/02/22 17:13 e-Cigarette/Vaping Use Never Used 06/08/24 14:53 Thrive Assessment: Date of Thrive Assessment Date Thrive assessed 06/08/24 06/08/24 14:53 Resp Effort & Inspection: normal respiratory effort Auscultation: clear to auscultation bilaterally Cardio Jugular venous distension: no JVD Rate: regular rate Rhythm: regular rhythm Heart sounds: S1 normal heart sound present and S2 normal heart sound present Extrem General: Yes full ROM Coding Level of Care Code Est Pt Level 4 (78974) Complex EM visit Add On G2211 Diagnoses Pre-operative cardiovascular examination Z01.810 Prediabetes R73.03 Overweight (BMI 25.0-29.9) E66.3 Iron deficiency anemia D50.9 Time Spent (min) 20 Assessment & Plan Assessment & Plan (1) Pre-operative cardiovascular examination: Code(s): Z01.810 - Encounter for preprocedural cardiovascular examination Category: Medical (2) Prediabetes: Code(s): R73.03 - Prediabetes Category: Medical (3) Overweight (BMI 25.0-29.9): Code(s): E66.3 - Overweight Category: Medical (4) Iron deficiency anemia: Code(s): D50.9 - Iron deficiency anemia, unspecified Category: Medical Plan The patient is scheduled for breast reduction surgery and has undergone a preoperative evaluation. Her hemoglobin level is slightly low at 11.9 g/dL, for which she is taking iron supplements daily. She is also managing her prediabetes through dietary modifications. The patient has a low-risk profile for surgery, with no reported chest pain or dyspnea and the ability to climb stairs without difficulty. She has a history of PICOL, previously managed with Fluticasone, which was discontinued after further evaluation. Patient was informed and verbally consented to the use of an ambient scribe for clinic note documentation during this visit.
[2024-10-01 12:34] VITALS: BP 130/80; BMI 28.3
--- OUTSIDE RECORDS SUMMARY | 2024-10-01 13:28 | XMS_ITS | Clinical Summary ---
Author Organization [employer] [facility] Address [address] [place] [address] Care Team Providers Care Webmethods Architect Name Role Phone Unavailable Primary Care Provider [...] - 2023-2 5 season) 2023 08/30/2020, 08/03/2020 Tobacco Screening 05/09/2024 05/09/2023 Influenza Vaccine (Season Ended) 2024 01/22/2020 Dental X-Ray: Full Mouth 11/30/2025 11/29/2022 Zoster [...] Years) and At-Risk Patients (6 to 49) Years Aged Out No longer eligible b ased [...] Most Recently Relevant to Health Maintenance Insurance [facility] MEDICAID STAND ADULT
== END 2024-10-01 12:52 | disposition home or self-care (01) ==
LOC: HO.HMCH 12:19
PROVIDERS: PCP Internal Medicine; Visit Provider Internal Medicine
DX: Z01.810 Encounter for preprocedural cardiovascular examination (principal); R73.03 Prediabetes; E66.3 Overweight; D50.9 Iron deficiency anemia, unspecified

== ENCOUNTER → 2024-10-01 12:18 | Outpatient (BNVA) | payer OTHER, SELFPAY | PROVIDERS: PCP Internal Medicine; Visit Provider Internal Medicine | DX: Z01.810 Encounter for preprocedural cardiovascular examination (principal); E66.3 Overweight; R73.03 Prediabetes; D50.9 Iron deficiency anemia, unspecified; Z68.28 Body mass index [BMI] 28.0-28.9, adult | CPT/HCPCS: 99212 ==

== ENCOUNTER 2024-12-29 14:42 | Outpatient (AMB) | payer OTHER, SELFPAY ==
[2024-12-29 14:46] VITALS: BP 118/78; PULSE 85; RESP 18; TEMP 36.2; O2SAT 97; BMI 29.2
--- NOTE | 2024-12-29 14:46 | MHC.PC.OV ---
Vital Signs 12/29/24 14:46 Height 4 ft 11 in Weight 144 lb 6 oz BMI 29.2 BP 118/78 Blood Pressure Location Lt brachial Position Sitting Respiration 18 Pulse 85 Pulse Source Pulse Oximeter Temp 97.1 F Temp Source Temporal Artery Scan Pulse Oximetry (%) 97 Oxygen Delivery Method Room Air Intake Visit Reasons: Annual physical Embedded Software Engineer Required: Yes Embedded Software Engineer Name: [id number]/Qamar Allergies No Known Allergies Allergy (Verified 12/29/24 14:59) Medication List - Last Reconciled 12/29/24 by RITA Glass No Known Home Meds Tobacco use date assessed: 12/29/24 Dental Screening Dental Screen Date: 12/29/24 Did you have a dental visit in the last 12 months?: Yes Did you have a dental problem in the last 6 months where you did not have access to dental care?: No Was dental information given to patient?: Patient has dentist HPI Annual physical HPI Details Patient is presenting for annual physical. The patient is of Dr. Melton, last seen in office 10/01/2024 Dentist: up to date Eye: Yes, waiting for operation in left eye Snellen: Right: Left: Corrected vision: no STI screening: Colonoscopy:n/a Pap Smer: up to date mammogram: up to date PHQ-9: Flu: no COVID:x2 Tdap: no, reports that she mckeon not want this vaccine Diet:regular-reports like that she would like to see a traffic division commanding officer Exercise: Reports using treadmill Patient reports that she has been trying to get an a diet but she does not know where to start and would like to be referred to a dietitian. She reports that she is going to have left eye surgery in the future. No concerns about this at this time. Patient has been having nasal congestion over 2-3 days now, denies shortness of breath or chest pain, denies fever or chills or body aches. The patient was also on ferrous sulfate 325mg daily and reports to the OR that she is not taking this, so it was discontinued. Discussed with the patient that she should continue this medication due to her anemia. The medication was reordered. [facility] Medical History Overweight (BMI 25.0-29.9) Bilateral wrist pain Paresthesia of hand, bilateral Pinguecula of left eye Low back pain Left lumbar radiculopathy Surgical History History of tubal ligation Family History Mother Pneumonia Chronic liver failure Father Colon cancer Sister Lupus Social History Housing: House Alcohol intake: never Patient Tobacco Use Status: Never used Tobacco e-Cigarette/Vaping Use: Never Used Second Hand Smoke Exposure: No service: No Current occupational status: employed Current occupational exposures/hazards: No Gender identity: Female Cognitive needs: No Hearing needs: No Vision needs: No Female Reproductive History Menstrual Age of Menarche: 15 Questionnaire PHQ-9 Over the last 2 weeks, how often have you been bothered by any of the following problems? 1. Little interest or pleasure in doing things: not at all 2. Feeling down, depressed, or hopeless: not at all 3. Trouble falling or staying asleep, or sleeping too much: not at all 4. Feeling tired or having little energy: not at all 5. Poor appetite or overeating: not at all 6. Feeling bad about yourself - or that you are a failure or have let yourself or your family down: not at all 7. Trouble concentrating on things, such as reading the newspaper or watching television: not at all 8. Moving or speaking so slowly that other people could have noticed. Or the opposite - being so fidgety or restless that you have been moving around a lot more than usual: not at all 9. Thoughts that you would be better off or of hurting yourself in some way: not at all Total score: 0 Depression Screening Interpretation: Negative Depression Screening Done: Yes Source: Developed by Drs. Vidal Morales, Lila Khanna, Huey Oliveira and colleagues, with an educational vic from [employer]. Thrive Questionnaire Date Thrive assessed: 12/29/24 I am a: Patient What is your living situation today?: I have a steady place to live Within the past 12 months, did the food you bought not last and you didn't have the money to get more?: Never true Within the past 12 months, did you worry whether your food would run out before you got money to buy more?: Never true Do you have trouble paying for medicines?: No Do you have trouble getting transportation to medical appointments?: No Do you have trouble paying your heating and electricity bill?: No Do you have trouble taking care of your child, family member or friend?: No Do you have trouble with day-to-day activities such as bathing, preparing meals, shopping, managing finances, etc.?: No Are you currently unemployed and looking for a job?: No Are you interested in more education?: I choose not to answer this question Please select the resources that you would like help with: None Currently or been in a relationship where the following occur: No concerns reported THRIVE Score: 0 AUDIT C Alcohol Use Questionnaire (AUDIT-C) 1. How often do you have a drink containing alcohol?: Never Total Score: 0 Score Reviewed/Action Taken: No ZURDO-7 AMB Questionnaire ZURDO-7 Date ZURDO - 7 assessed: 12/29/24 Feeling nervous, anxious, or on edge: 0 = Not at all Not being able to stop or control worryin = Not at all Worrying too much about different things: 0 = Not at all Trouble relaxin = Not at all Being so restless that it is hard to sit still: 0 = Not at all Becoming easily annoyed or irritable: 0 = Not at all Feeling afraid as if something awful might happen: 0 = Not at all Total ZURDO-7 score (0-4 normal; 5-9 mild; 10-14 moderate; 15-21 severe): 0 Source: Developed by Drs. Vidal Morales, Lila Khanna, Huey Oliveira and colleagues, with an educational vic from [employer]. Review of Systems Const Denies headache(s) Eyes Denies loss of vision ENT Denies vertigo, Denies dizziness, Denies headache(s) and Denies sore throat Card Denies chest pain, Denies leg edema and Denies lightheadedness Resp Denies cough, Denies hemoptysis and Denies wheezing GI Denies abdominal pain, Denies melena, Denies constipation, Denies diarrhea and Denies vomiting Denies urinary frequency, Denies dysuria and Denies urinary urgency Musc Denies arthralgias, Denies joint swelling, Denies numbness and Denies tingling Neuro Denies Abnormal speech present, Denies behavioral changes, Denies vertigo, Denies dizziness, Denies headache(s), Denies loss of vision, Denies memory loss, Denies numbness and Denies tingling Psych Denies anxiety, Denies behavioral changes, Denies depression, Denies memory loss and Denies panic attacks Desmond/Lymph Denies easy bleeding and Denies easy bruising Aller/Immun Denies wheezing Physical exam (Primary Care) Vital Signs: Last Vital Signs Temp 97.1 F 12/29/24 14:46 Pulse 85 12/29/24 14:46 Resp 18 12/29/24 14:46 BP 118/78 12/29/24 14:46 Pulse Ox 97 12/29/24 14:46 Oxygen Delivery Method Room Air 12/29/24 14:46 BMI result Body Mass Index 29.2 Tobacco/Smoking Status: Tobacco use Status Tobacco use date assessed 12/29/24 12/29/24 14:55 Patient Tobacco Use Status Never used Tobacco 12/29/24 14:55 Tobacco use type 05/02/22 17:13 e-Cigarette/Vaping Use Never Used 12/29/24 14:55 PHQ-9: PHQ-9 Score PHQ-9: Total score 0 12/29/24 15:48 Depression Screening Interpretation: Negative Thrive Assessment: Date of Thrive Assessment Date Thrive assessed 12/29/24 12/29/24 14:55 Currently or been in a relationship where the following occur: No concerns reported Const General: healthy appearing, no acute distress, alert and awake Nutritional Appearance: well nourished Orientation/consciousness: oriented to person, oriented to place and oriented to time HENMN Ears: TM's normal bilaterally General nose exam: Abnormal mucous membranes and turbinates present boggy and erythematous and Nasal discharge present clear bilateral Eyes Conjunctivae: conjunctivae normal Sclerae: sclerae normal Pupils: Equal, round and reactive pupils present Neck Neck: Yes no lymphadenopathy and Yes no JVD Thyroid: Thyroid normal Carotids: no bruits Resp Effort & Inspection: normal respiratory effort and not tachypneic Auscultation: no crackles, no rales, no rhonchi and no wheezes Cardio Rate: regular rate Rhythm: regular rhythm Heart sounds: no murmurs and normal S1 and S2 GI Palpation (GI): Soft to palpation, nontender, no hepatomegaly and no splenomegaly Auscultation: normal bowel sounds General: Yes CVA tenderness Back/Spine/Pelvis Back: CVA tenderness Skin General skin exam: no rashes or lesions noted and dry skin Neuro General: oriented to person, oriented to place, oriented to time and CN's II-XI intact bilaterally Cranial nerves: Yes Equal, round and reactive pupils present Speech: No Abnormal speech present Gait exam (Neuro): Normal gait present Motor exam (neuro): no tremor noted Deep tendon reflexes (DTR's): Right triceps reflex intensity grade: 2+, Left triceps reflex intensity grade: 2+, Rt Biceps (C5, C6): 2+, Left biceps reflex intensity grade: 2+, Right brachioradialis reflex intensity grade: 2+, Left brachioradialis reflex intensity grade: 2+, Right patellar reflex intensity grade: 2+ and Left patellar reflex intensity grade: 2+ Extrem Right upper extremity: full ROM Left upper extremity: full ROM Right lower extremity: full ROM; no edema Left lower extremity: full ROM; no edema Psych Mental Status: mental status grossly normal Speech and movement: Normal speech and movement present Affect: normal affect Attitude: cooperative Thought process: Normal thought process present Results AMB Hemoglobin A1c AMB Hemoglobin A1c 5.0 % Last Edit by Cat Lee CMA on 12/29/24 15:11 Results Reviewed Results Reviewed: Laboratory Last Values Hgb A1c (Clinic) 5.0 % (4.0-6.0) 12/29/24 15:10 Coding Level of Care Code Est Pt Prev Care 40-64y(92832) Diagnoses Physical exam Z00.00 Iron deficiency anemia, unspecified iron deficiency anemia type D50.9 Iron deficiency anemia type: unspecified iron deficiency Pterygium of left eye H11.002 Laterality: left Prediabetes R73.03 Overweight (BMI 25.0-29.9) E66.3 Hypertriglyceridemia E78.1 Time Spent (min) 39 Assessment & Plan Assessment & Plan (1) Physical exam: Code(s): Z00.00 - Encounter for general adult medical examination without abnormal findings Category: Medical Plan: Preventative guidelines reviewed with the patient. Patient is up-to-date on dental an eye exam. She has a pending future eye surgery. She is upto date with her mammogram and pap smear. Labs ordered, will advise (2) Iron deficiency anemia: Code(s): D50.9 - Iron deficiency anemia, unspecified Category: Medical Qualifiers: Iron deficiency anemia type: unspecified iron deficiency Qualified Code(s): D50.9 - Iron deficiency anemia, unspecified Plan: H&H 11.9/36.3 on 09/10/2024 Patient reports stop taking ferrous sulfate. This medication was reordered and the patient was encouraged to restart. (3) Pterygium: Code(s): H11.009 - Unspecified pterygium of unspecified eye Category: Medical Qualifiers: Laterality: left Qualified Code(s): H11.002 - Unspecified pterygium of left eye Plan: Left eye affected. Reports plans surgery in the future. (4) Prediabetes: Code(s): R73.03 - Prediabetes Category: Medical Plan: Fasting glucose 113 on 07/10/2024, A1c is 5% in office Reinforced low sugar/carbohydrate diet We will continue to monitor fasting glucose (5) Overweight (BMI 25.0-29.9): Code(s): E66.3 - Overweight Category: Medical Plan: Discussed lifestyle modifications including dietary changes and physical activity (6) Hypertriglyceridemia: Code(s): E78.1 - Pure hyperglyceridemia Category: Medical Plan: Triglycerides 49, total cholesterol 158, LDL 109 HDL 40 on 07/10/2024 Discussed lifestyle modifications including dietary changes and physical activity We will continue to monitor lipid panel Orders: Orders AMB Hemoglobin A1c 12/29/24 Z13.9 - Encounter for screening, unspecified Complete Blood Count Auto Diff 12/29/24 D50.9 - Iron deficiency anemia, unspecified, E66.3 - Overweight, E78.1 - Pure hyperglyceridemia, H11.002 - Unspecified pterygium of left eye, R73.03 - Prediabetes Comprehensive [place]. Panel Fast 12/29/24 D50.9 - Iron deficiency anemia, unspecified, E66.3 - Overweight, E78.1 - Pure hyperglyceridemia, H11.002 - Unspecified pterygium of left eye, R73.03 - Prediabetes TSH reflex Free T4 12/29/24 D50.9 - Iron deficiency anemia, unspecified, E66.3 - Overweight, E78.1 - Pure hyperglyceridemia, H11.002 - Unspecified pterygium of left eye, R73.03 - Prediabetes UA CC w/rflx Micro + Cult 12/29/24 D50.9 - Iron deficiency anemia, unspecified, E66.3 - Overweight, E78.1 - Pure hyperglyceridemia, H11.002 - Unspecified pterygium of left eye, R73.03 - Prediabetes Vitamin D 25-OH Total 12/29/24 D50.9 - Iron deficiency anemia, unspecified, E66.3 - Overweight, E78.1 - Pure hyperglyceridemia, H11.002 - Unspecified pterygium of left eye, R73.03 - Prediabetes Lipid Panel 12/29/24 D50.9 - Iron deficiency anemia, unspecified, E66.3 - Overweight, E78.1 - Pure hyperglyceridemia, H11.002 - Unspecified pterygium of left eye, R73.03 - Prediabetes IRON PROFILE 12/29/24 D50.9 - Iron deficiency anemia, unspecified, E66.3 - Overweight, E78.1 - Pure hyperglyceridemia, H11.002 - Unspecified pterygium of left eye, R73.03 - Prediabetes Medications: New fluticasone propionate 50 mcg/actuation administer into each nostril 1 spray intranasal BID 16 grams 0RF Refilled ferrous sulfate 325 mg PO DAILY 90 tabs 1RF 90 days D50.9 - Iron deficiency anemia, unspecified
--- OUTSIDE RECORDS SUMMARY | 2024-12-29 18:23 | XMS_ITS | Clinical Summary ---
Author Organization 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 Role Phone Unavailable Primary Care Provider [...] Use Screening 1992 Family Planning (PISQ) 12/02/1995 HPV Vaccines (1 - 3-dose series) 12/02/1995 Hepatitis C Screening 1998 DTaP/Tdap/Td Vaccines (1 - Tdap) 12/02/1999 Hepatitis B Vaccines (1 of 3 - 19+ 3-dose series) 12/02/1999 Pap Smear 2001 Cervical Cancer Screening 2010 HPV/Cotest 2010 Mammogram 2020 Dental Oral Exam 06/02/2023 11/29/2022 Dental Prophylaxis 11/08/2023 05/09/2023 Dental X-Ray: Bitewings 2023 11/29/2022 Tobacco Screening 05/09/2024 05/09/2023 COVID-19 Vaccine (3 - 2024-2 6 season) 2024 08/30/2020, 08/03/2020 Influenza Vaccine (#1) 2024 01/22/2020 Dental X-Ray: Full Mouth 11/30/2025 [...] Most Recently Relevant [place] [id number] [facility] MEDICAID STAND ADULT
== END 2024-12-29 15:28 | disposition home or self-care (01) ==
LOC: HO.HMCH 14:43
PROVIDERS: PCP Internal Medicine
DX: Z13.9 Encounter for screening, unspecified (principal)

== ENCOUNTER → 2024-12-29 14:42 | Outpatient (BNVA) | payer OTHER, SELFPAY | PROVIDERS: PCP Internal Medicine | DX: Z00.00 Encounter for general adult medical examination without abnormal findings (principal); D50.9 Iron deficiency anemia, unspecified; H11.002 Unspecified pterygium of left eye; R73.03 Prediabetes; E78.1 Pure hyperglyceridemia; E66.3 Overweight; Z68.29 Body mass index [BMI] 29.0-29.9, adult | CPT/HCPCS: 83036; 99396 ==

== ENCOUNTER 2025-01-12 13:11 | Outpatient (REF) | payer OTHER, SELFPAY ==
[2025-01-13 10:49] LABS: Chlamydia pneumoniae PCR Not Detected (Not Detect.); Coronavirus 229E PCR Not Detected (Not Detect.); Coronavirus HKU1 PCR Not Detected (Not Detect.); Coronavirus NL63 PCR Not Detected (Not Detect.); Coronavirus OC43 PCR Not Detected (Not Detect.); RSV PCR Not Detected (Not Detect.); Rhino/Enterovirus PCR Not Detected (Not Detect.)
[2025-01-13 10:50] LABS: Influenza A H1 PCR Not Detected (Not Detect.); Influenza A H1-2009 PCR Not Detected (Not Detect.); Influenza A H3 PCR Not Detected (Not Detect.); SARS-CoV-2 PCR Not Detected (Not Detect.)
== END 2025-01-12 13:12 | disposition home or self-care (01) ==
LOC: HO.LAB 13:11
PROVIDERS: PCP Internal Medicine; Visit Provider Physician Assistant
DX: J06.9 Acute upper respiratory infection, unspecified (principal)
CPT/HCPCS: 87633; 99212

== ENCOUNTER 2025-01-12 13:11 | Outpatient (AMB) | payer OTHER, SELFPAY ==
[2025-01-12 13:15] VITALS: BP 110/70; PULSE 72; TEMP 36.7; O2SAT 98; BMI 28.9
--- NOTE | 2025-01-12 13:15 | AM.OFFWIN_ITS ---
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 History - The patient is a 44-year-old female pr esenting with headache and congestion. - The headache began yesterday, accompan ied by mild congestion. - Denies fever, cough, or dyspnea. - No history of asthma or COPD. - Has not taken any fwea-vfp-[id number] med ications for these symptoms. - Co-worker has Covid Physical Exam General: Cooperative, healthy appearing, comfortable and no acute distress Orientation/consciousness: Patient oriented x3 Limitations: No limitations Head: Normal to inspection Ears: Hearing grossly normal bilaterally, external ears normal and TM's normal bilaterally Nose: Normal external nose present, Normal nares present and No nasal discharge present Face and sinus: Normal facial exam and Yes sinuses nontender Mouth: Normal oral and palatal mucosa present and moist mucous membranes Throat: Yes tonsils normal, Yes uvula midline. Posterior oropharynx erythema, no exudates Eyes: Appearance normal, both eyes and all related structures Neck: Normal visual inspection, full ROM Respiratory: Clear to auscultation bilaterally. Normal respiratory effort, able to speak in complete sentences, No active coughing, no respiratory distress, not tachypneic, no tripod positioning and no use of accessory muscles Cardiovascular: Regular rate and rhythm. Normal S1 and S2 Skin: No rashes or lesions noted Neuro: Patient oriented x3 Extremities: Normal to inspection and Yes no clubbing, cyanosis or edema Review of Systems - General: Denies fever. - Respiratory: Denies cough and dyspnea. - Neurological: Reports headache. - ENT: Reports congestion. All systems reviewed and are unremarkable except as noted in HPI [facility] Medical History Overweight (BMI 25.0-29.9) Bilateral wrist pain Paresthesia of hand, bilateral Pinguecula of left eye Low back pain Left lumbar radiculopathy Surgical History History of tubal ligation Family History Mother Pneumonia Chronic liver failure Father Colon cancer Sister Lupus Social History Housing: House Alcohol intake: never Patient Tobacco Use Status: Never used Tobacco e-Cigarette/Vaping Use: Never Used Second Hand Smoke Exposure: No service: No Current occupational status: employed Current occupational exposures/hazards: No Gender identity: Female Cognitive needs: No Hearing needs: No Vision needs: No Female Reproductive History Menstrual Age of Menarche: 15 Physical Exam Vital Signs: Last Vital Signs Temp 98.1 F 01/12/25 13:15 Pulse 72 01/12/25 13:15 BP 110/70 01/12/25 13:15 Pulse Ox 98 01/12/25 13:15 Oxygen Delivery Method Room Air 01/12/25 13:15 BMI result Body Mass Index 28.9 Assessment & Plan Assessment & Plan (1) URI, acute: Code(s): J06.9 - Acute upper respiratory infection, unspecified Plan: Plan Patient was informed and verbally consented to the use of an ambient scribe for clinic note documentation during this visit. - VSS, pt well appearing and PE unremarkable. - Monitor symptoms and use dour-dyo-sntbuhr medications as needed. - Rest and increase fluid intake advised. - Use of decongestants and antihistamines recommended. - Wrote work note for tomorrow, advised will write a few more days if she needs it, pls message me - Wants Paxlovid if Covid positive. Orders: Orders Resp Pathogen Panel - [facility] Today J06.9 - Acute upper respiratory infection, unspecified Coding Level of Care Code Est Pt Level 3 (42699) Diagnoses URI, acute J06.9
--- OUTSIDE RECORDS SUMMARY | 2025-01-12 14:26 | XMS_ITS | Clinical Summary ---
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
== END 2025-01-12 13:57 | disposition home or self-care (01) ==
PROVIDERS: PCP Internal Medicine; Visit Provider Physician Assistant
DX: J06.9 Acute upper respiratory infection, unspecified (principal)